=== PATIENT | female | born 1965 | race African-American/Black ===

== ENCOUNTER → 2016-09-27 | Outpatient (CLI) | payer OTHER ==
[~2016-09-27] MED LIST: ADVIN10/60 INH; DIVA500T59 PO; GABA-113 PO; RISP1TAB18 PO; TRAZ100T29 PO; VNTHFA/IN INH; ZIPR60CA PO
[2016-09-30 01:55] LABS: CHLAMYDIA TRACH RNA*** NOT DETECTED (NOT DETECTED); GC (NEIS GONORRHOEAE)RNA** NOT DETECTED (NOT DETECTED)
== END | disposition home or self-care (01) ==
LOC: C.LAB1850 13:42
PROVIDERS: ATTEND Obstetrics & Gynecology
DX: Z11.3 Encounter for screening for infections with a predominantly sexual mode of transmission (principal)

== ENCOUNTER → 2017-04-12 | Outpatient (CLI) | payer OTHER ==
[2017-04-12 15:34] LABS: BASO % 0.4 %; BASO ABS # 0.04 K/uL (0-0.2); COMPLETE YES; EOS % 1.4 %; HEMATOCRIT 41.8 % (37-47); IG% 0.2 %; LYMPH % 41.7 %; LYMPH ABS # 4.06 K/uL (1.2-3.4); MEAN CELL VOLUME 88.9 fL (80-100); MEAN CORPUSCULAR HEMOGLOBIN 28.9 pg (25-34); MEAN CORPUSCULAR HGB CONC 32.5 g/dl (32-36); MEAN PLATELET VOLUME 10.1 fL (7.4-10.4); MONO % 4.7 %; NEUT % 51.6 %; PLATELET COUNT 312 K/uL (130-400); WHITE BLOOD COUNT 9.73 K/uL (4.8-10.8)
[2017-04-12 16:55] LABS: BENZODIAZEPINE, URINE NEG (NEG); COCAINE,URINE NEG (NEG); PHENCYCLIDINE, URINE NEG (NEG)
== END | disposition home or self-care (01) ==
LOC: C.LAB 14:43
PROVIDERS: ATTEND Psychiatry & Neurology Psychiatry
DX: F31.9 Bipolar disorder, unspecified (principal)

== ENCOUNTER → 2017-04-16 | Outpatient (CLI) | payer OTHER ==
--- NOTE | 2017-04-16 16:13 | MAMMOGRAPHY REPORT ---
BILATERAL DIGITAL SCREENING MAMMOGRAM TOMOSYNTHESIS WITH CAD: 04/16/2017 CLINICAL HISTORY: Routine screening. TECHNIQUE: Breast tomosynthesis in addition to standard 2D mammography was performed. Current study was also evaluated with a Computer Aided Detection (CAD) system. COMPARISON: Comparison is made to exams dated: 04/01/2015 mammogram, 01/29/2013 mammogram, 01/29/2012 mamm ogram - [facility], 07/20/2008, and 07/18/2007. BREAST COMPOSITION: There are scattered areas of fibroglandular density in both breasts. FINDINGS: No suspicious masses, calcifications, or areas of architectural distortion are noted in ei ther breast. There has been no significant interval change compared to prior exams. IMPRESSION: ACR BI-RADS CATEGORY 1: NEGATIVE There is no mammographic evidence of malignancy. A 1 year screening mammogram is recommended. The pa tient will receive written notification of the results. Approximately 10% of breast cancers are not detected with mammography. A negative mammographic report should not delay biopsy if a clinically suggestive mass is present. Annette Allison M.D. ah/:04/16/2017 15:02:04 Infection Prevention Practitioner: Martin ARGUELLES(R)(M), [facility] letter sent: Normal 1/2 BI-RADS Code: ACR BI-RADS Category 1: Negative
== END | disposition home or self-care (01) ==
LOC: C.MAMM 12:11
PROVIDERS: ATTEND Obstetrics & Gynecology
DX: Z12.31 Encounter for screening mammogram for malignant neoplasm of breast (principal)

== ENCOUNTER 2017-06-04 10:41 | Emergency (ER) | payer OTHER ==
[~2017-06-04] VITALS: Ht 162.6 cm; Wt 76.9 kg
[~2017-06-04 10:41] MED LIST changes: -ADVIN10/60 INH; -DIVA500T59 PO
[2017-06-04 10:46] VITALS: TEMP 36.9; Ht 162.6 cm; Wt 76.9 kg
[2017-06-04] MEDS ORDERED: ACETAMINOPHEN 500 MG TAB PO STA (10:58)
[2017-06-04] MEDS ORDERED: SODIUM CHLORIDE 0.9% 1000ML 1,000 ML IV STA (10:58)
--- NOTE | 2017-06-04 11:20 | EMERGENCY ROOM VISIT NOTE ---
History Report prepared by Rosales: Lg Montilla Under the Supervision of: Dr. Jatinder Cobos M.D. First contact with patient: 10:55 Chief Complaint: BACK PAIN Stated Complaint: PAIN IN LEFT SIDE History of Present Illness The patient is a 51 year old female who presents to the Emergency Room with complaints of constant left upper back pain starting last night. The patient states that this pain is different than her normal back pain. She states that the pain is worsened with breathing and moving. The patient states that she was wheezing this morning, so she took 2 puffs from her albuterol inhaler. The patient denies any fever, chills, cough, congestion, shortness of breath, nausea , vomiting, and sweating. She additionally states that she is scheduled to have back surgery in a few weeks. She states that she watched a lot of television last night while laying down. Source of History: patient Onset: last night Position: back (upper) Timing: constant Modifying Factors (Worsening): breathing, movement Associated Symptoms: No fevers, No chills, No diaphoresis, No SOB, No nausea , No vomiting Review of Systems See HPI for pertinent positives and negatives. A total of ten systems were reviewed and were otherwise negative. Past Medical & Surgical Medical Problems: (1) Chronic back pain (2) Lung disease Social History Smoking Status: Current Every Day Smoker Alcohol Use: none Marital Status: single Occupation Status: unemployed Current/Historical Medications Scheduled Gabapentin (Neurontin), 300 MG PO TID Risperidone (Risperdal), 1 MG PO HS Trazodone Hcl (Trazodone), 100 MG PO QHS Ziprasidone Hcl (Geodon), 60 MG PO BID Scheduled PRN Albuterol Hfa (Ventolin Hfa), 2-4 PUFFS INH Q6H PRN for SOB/Wheezing Allergies Coded Allergies: Ibuprofen (Verified Allergy, Mild, RASH, 06/04/17) Shellfish (Verified Allergy, Mild, HIVES, 06/04/17) Physical Exam Vital Signs Date Time Temp Pulse Resp B/P (MAP) Pulse Ox O2 Delivery O2 Flow Rate FiO2 06/04/17 12:49 61 123/79 100 06/04/17 12:27 63 06/04/17 11:29 100 Room Air 06/04/17 10:46 36.9 71 18 151/100 99 Room Air Physical Exam GENERAL: Awake, alert, well-appearing, in no distress HENT: Dry mucous membranes. Normocephalic, atraumatic. Oropharynx unremarkable. EYES: Normal conjunctiva. Sclera non-icteric. NECK: Supple. No nuchal rigidity. FROM. No JVD. RESPIRATORY: Clear to auscultation. CARDIAC: Regular rate, normal rhythm. Extremities warm and well perfused. Pulses equal. ABDOMEN: Soft, non-distended. No tenderness to palpation. No rebound or guarding. No masses. RECTAL: Deferred. MUSCULOSKELETAL: Tenderness in the left trapezius and subscapular region with palpable muscle spasm. Chest examination reveals no tenderness. The back is symmetrical on inspection without obvious abnormality. There is no CVA tenderness to palpation. No joint edema. LOWER EXTREMITIES: Calves are equal size bilaterally and non-tender. No edema. No discoloration. NEURO: Normal sensorium. No sensory or motor deficits noted. SKIN: No rash or jaundice noted. Medical Decision & Procedures ER Provider Diagnostic Interpretation: Radiology results as stated below per my review and radiologist interpretation: CHEST ONE VIEW PORTABLE CLINICAL HISTORY: Atypical chest pain COMPARISON STUDY: 09/29/2010 FINDINGS: The cardiac and mediastinal contours are normal. There is no evidence of focal pulmonary consolidation. There is no evidence of failure. No pleural effusions are visualized. IMPRESSION: No active disease in the chest. Electronically signed by: Santi Doshi M.D. 06/04/2017 11:26 AM Dictated Date/Time: 06/04/2017 11:25 AM Laboratory Results 06/04/17 11:11 Red Blood Count 4.65, Mean Corpuscular Volume 88.8, Mean Corpuscular Hemoglobin 28.0, Mean Corpuscular Hemoglobin Concent 31.5, Mean Platelet Volume 9.9, Neutrophils (%) (Auto) 48.5, Lymphocytes (%) (Auto) 44.0, Monocytes (%) (Auto) 5.1, Eosinophils (%) (Auto) 1.9, Basophils (%) (Auto) 0.4, Neutrophils # (Auto) 3.82, Lymphocytes # (Auto) 3.47, Monocytes # (Auto) 0.40, Eosinophils # (Auto) 0.15, Basophils # (Auto) 0.03 06/04/17 11:11 Test 06/04/17 11:11 White Blood Count 7.88 K/uL (4.8-10.8) Red Blood Count 4.65 M/uL (4.2-5.4) Hemoglobin 13.0 g/dL (12.0-16.0) Hematocrit 41.3 % (37-47) Mean Corpuscular Volume 88.8 fL (80-100) Mean Corpuscular Hemoglobin 28.0 pg (25-34) Mean Corpuscular Hemoglobin Concent 31.5 g/dl (32-36) Platelet Count 295 K/uL (130-400) Mean Platelet Volume 9.9 fL (7.4-10.4) Neutrophils (%) (Auto) 48.5 % Lymphocytes (%) (Auto) 44.0 % Monocytes (%) (Auto) 5.1 % Eosinophils (%) (Auto) 1.9 % Basophils (%) (Auto) 0.4 % Neutrophils # (Auto) 3.82 K/uL (1.4-6.5) Lymphocytes # (Auto) 3.47 K/uL (1.2-3.4) Monocytes # (Auto) 0.40 K/uL (0.11-0.59) Eosinophils # (Auto) 0.15 K/uL (0-0.5) Basophils # (Auto) 0.03 K/uL (0-0.2) RDW Standard Deviation 47.0 fL (36.4-46.3) RDW Coefficient of Variation 14.5 % (11.5-14.5) Immature Granulocyte % (Auto) 0.1 % Immature Granulocyte # (Auto) 0.01 K/uL (0.00-0.02) Anion Gap 5.0 mmol/L (3-11) Est Creatinine Clear Calc Drug Dose 70.3 ml/min Estimated GFR () 80.8 Estimated GFR (Non- 69.8 BUN/Creatinine Ratio 25.2 (10-20) Calcium Level 8.7 mg/dl (8.5-10.1) Troponin I < 0.015 ng/ml (0-0.045) Chemistry Specimen Hemolysis Laboratory results reviewed by me Medications Administered Medications (Trade) Dose Ordered Sig/Lady Route Start Time Stop Time Status Last Admin Dose Admin Sodium Chloride 1,000 ml @ 999 mls/hr Q1H1M STAT IV 06/04/17 10:58 06/04/17 11:58 DC 06/04/17 11:28 999 MLS/HR Acetaminophen (Tylenol Tab) 1,000 mg NOW STAT PO 06/04/17 10:58 06/04/17 11:05 DC 06/04/17 11:26 1,000 MG ECG Indication: back/shoulder pain Rate (beats per minute): 68 Rhythm: normal sinus Findings: no acute ischemic change, other (normal axis) ED Course 1055: The patient was evaluated in room A3. A complete history and physical exam was performed. 1058: Tylenol Tab 1000mg PO, Sodium Chloride 1000 ml @ 999 mls/hr IV 1226: I reevaluated the patient, and she feels the same, but I informed her that there was nothing emergent at this time. I advised using a heating pad and follow up with her doctor. Medical Decision I reviewed the patient's past medical history, medications, and the nursing notes as described above. Differential diagnoses include: Musculoskeletal strain, cervical radiculopathy, pneumonia, bronchitis, COPD exacerbation, ACS, PE. The patient is a 51 y/o woman who presents to the ED with left upper back pain that started last night after prolonged time sitting on couch watching moves per HPI. On arrival the patient is in NAD, AFVSS. EKG unremarkable. Trop negative in the setting of > 6 hours of constant sx. Heart score 1, low risk. ACS not likely. Labs otherwise, unremarkable. On exam CTAB, +reproducible pain and palpable muscle spasm over left trapezius and subscapular area c/w muscle strain. Neck NTTP without step-offs. Findings and plan for follow-up d/w patient. Patient agreeable and d/c'd per discharge instructions. Medication Reconcilliation Current Medication List: was personally reviewed by me Blood Pressure Screening Patient's blood pressure: Elevated blood pressure Blood pressure disposition: Elevated BP felt to be situational Impression Primary Impression: Trapezius muscle strain Additional Impression: Trapezius muscle spasm Scribe Attestation The scribe's documentation has been prepared under my direction and personally reviewed by me in its entirety. I confirm that the note above accurately reflects all work, treatment, procedures, and medical decision making performed by me. Departure Information Dispostion Home / Self-Care Referrals No Doctor, Assigned (PCP) Forms HOME CARE DOCUMENTATION FORM, IMPORTANT VISIT INFORMATION Patient Instructions ED Muscle Aching, ED Spasm Muscle, My [facility] Additional Instructions Please follow up with your primary care physician in the next 1-3 days for reevaluation. Your symptoms are likely due to a muscle strain/spasm. Otherwise, your exam, EKG, chest x-ray and lab results did not show signs of an emergent condition at this time. Acetaminophen for pain as needed. Apply heating pad at 20 minute intervals throughout the day for additional pain relief and muscle relaxation Return to the emergency department for worsening symptoms as described in the accompanying instructions. Problem Qualifiers
--- NOTE | 2017-06-04 11:27 | DIAGNOSTIC IMAGING REPORT ---
CHEST ONE VIEW PORTABLE CLINICAL HISTORY: Atypical chest pain COMPARISON STUDY: 09/29/2010 FINDINGS: The cardiac and mediastinal contours are normal. There is no evidence of focal pulmonary consolidation. There is no evidence of failure. No pleural effusions are visualized.[ IMPRESSION: No active disease in the chest. Electronically signed by: Santi Doshi M.D. 06/04/2017 11:26 AM Dictated Date/Time: 06/04/2017 11:25 AM
[2017-06-04 11:29] VITALS: O2SAT 100
[2017-06-04 11:30] LABS: RED BLOOD COUNT 4.65 M/uL (4.2-5.4); WHITE BLOOD COUNT 7.88 K/uL (4.8-10.8)
[2017-06-04 11:31] LABS: BASO % 0.4 %; BASO ABS # 0.03 K/uL (0-0.2); COMPLETE YES; EOS % 1.9 %; HEMATOCRIT 41.3 % (37-47); IG% 0.1 %; LYMPH ABS # 3.47 K/uL (1.2-3.4); MEAN CELL VOLUME 88.8 fL (80-100); MEAN CORPUSCULAR HGB CONC 31.5 g/dl (32-36); MEAN PLATELET VOLUME 9.9 fL (7.4-10.4); MONO % 5.1 %; NEUT % 48.5 %; PLATELET COUNT 295 K/uL (130-400)
[2017-06-04 11:58] LABS: BLOOD UREA NITROGEN 24 mg/dl (7-18); BUN/CREATININE RATIO 25.2 (10-20); CALCIUM 8.7 mg/dl (8.5-10.1); CARBON DIOXIDE 24 mmol/L (21-32); CHLORIDE 110 mmol/L (98-107); CREATININE 0.94 mg/dl (0.60-1.20); GLUCOSE 84 mg/dl (70-99); POTASSIUM 4.4 mmol/L (3.5-5.1); SODIUM 139 mmol/L (136-145)
[2017-06-04 12:49] VITALS: BP 123/79; PULSE 61; O2SAT 100
== END 2017-06-04 12:50 | disposition home or self-care (01) ==
LOC: C.EDB 10:42 → C.EDA 12:50
DX: S46.812A Strain of other muscles, fascia and tendons at shoulder and upper arm level, left arm, initial encounter (principal); X58.XXXA Exposure to other specified factors, initial encounter; M62.838 Other muscle spasm; M54.6 Pain in thoracic spine; G89.29 Other chronic pain; J98.4 Other disorders of lung; F17.200 Nicotine dependence, unspecified, uncomplicated

== ENCOUNTER → 2017-12-10 | Outpatient (CLI) | payer OTHER | END | disposition home or self-care (01) | LOC: C.LABSPEC 15:57 | PROVIDERS: ATTEND Obstetrics & Gynecology | DX: N89.8 Other specified noninflammatory disorders of vagina (principal) ==

== ENCOUNTER 2018-02-15 07:20 | Emergency (ER) | payer OTHER ==
[~2018-02-15] VITALS: Ht 162.6 cm; Wt 65.0 kg
[2018-02-15 07:32] VITALS: TEMP 36.9; Ht 162.6 cm; Wt 65.0 kg
[2018-02-15] MEDS ORDERED: ACETAMINOPHEN 500 MG TAB PO STA (07:48)
--- NOTE | 2018-02-15 08:25 | DIAGNOSTIC IMAGING REPORT ---
L ANKLE MIN 3 VIEWS ROUTINE CLINICAL HISTORY: 52 years-old Female presenting with LEFT, EVAL FX. TECHNIQUE: Frontal, mortise, and lateral views of the left ankle were obtained. COMPARISON: 12/22/2007. FINDINGS: Anterior osteophytosis noted at the ankle mortise, which is congruent. This is new from prior. Smoothly sclerotic ossicle noted at the inferior pole of the medial malleolus likely due to prior avulsion injury. This is also new from prior. No acute fracture or malalignment. No radiographic soft tissue abnormality. IMPRESSION: 1. No acute osseous injury. 2. Evidence of old avulsion injury at the inferior pole the medial malleolus. New since 2007. 3. Degenerative changes of the ankle mortise. New since 2007. Electronically signed by: Christopher Narayanan M.D. 02/15/2018 8:24 AM Dictated Date/Time: 02/15/2018 8:07 AM
--- NOTE | 2018-02-15 08:30 | EMERGENCY ROOM VISIT NOTE ---
ED Visit Note First contact with patient: 07:35 CHIEF COMPLAINT: Left ankle injury last evening HISTORY OF PRESENT ILLNESS: Patient is a 52-year-old female who presents emergency department for evaluation of left ankle pain. She twisted the ankle last evening when she fell off of a Hoverboard. She reports that she applied ice and elevated the ankle. She states that her boyfriend brought her one crutch to use. This morning the ankle was more painful and she could not put weight on it. She rates her discomfort a 9/10. She denies any prior history of injuries to this ankle. REVIEW OF SYSTEMS: Review of systems as per HPI. All other systems reviewed were negative. At least 6 systems reviewed. PMH: Electronic medical records are reviewed and summarized as above/below. See Problem List. SOCIAL HISTORY: Patient lives at home. Smoker. PHYSICAL EXAM: Vital Signs: Reviewed Nurse's notes. MENTAL STATUS: Tearful 52- year-old female who is seated in a wheelchair in no acute distress. MUSCULOSKELETAL: The left ankle is slightly swollen and tender over the lateral aspect but the skin is intact and there is no ligamentous instability. No pain over the 5th metatarsal or fibular head. Lisfranc joint is negative. There is no deformity. The foot and toes are warm and well-perfused. Sensation to pain and light touch is intact. EMERGENCY DEPARTMENT COURSE: Ice pack was applied and patient was medicated with 1 g of Tylenol orally. X-ray reveals no acute fracture, arthritic and old posttraumatic findings were noted. A compression sleeve and gel splint were applied to the ankle under my direction and the position was satisfactory. Crutches were issued and patient was instructed on a non weight bearing gait. Conservative care measures were discussed. Patient was encouraged to follow-up with her primary care provider or with orthopedics if she does not feel that her symptoms are improving. Medication reconciliation: I attest that I have personally reviewed the patient' s current medication list. Blood pressure screening: Patient was found to have a slightly elevated blood pressure due to circumstances. I do not believe that the patient requires hypertension monitoring. Differential diagnosis include foot verses ankle sprain/fracture, contusion, dislocation. L ANKLE MIN 3 VIEWS ROUTINE CLINICAL HISTORY: 52 years-old Female presenting with LEFT, EVAL FX. TECHNIQUE: Frontal, mortise, and lateral views of the left ankle were obtained. COMPARISON: 12/22/2007. FINDINGS: Anterior osteophytosis noted at the ankle mortise, which is congruent. This is new from prior. Smoothly sclerotic ossicle noted at the inferior pole of the medial malleolus likely due to prior avulsion injury. This is also new from prior. No acute fracture or malalignment. No radiographic soft tissue abnormality. IMPRESSION: 1. No acute osseous injury. 2. Evidence of old avulsion injury at the inferior pole the medial malleolus. New since 2007. 3. Degenerative changes of the ankle mortise. New since 2007. Problem List Medical Problems: (1) Back pain with radiation Status: Resolved (2) Cervical radiculopathy Status: Resolved (3) Chronic back pain Status: Chronic (4) Lung disease Status: Chronic (5) Paresthesia of arm Status: Resolved (6) Trapezius muscle spasm Status: Resolved (7) Trapezius muscle strain Status: Resolved Current/Historical Medications Scheduled Risperidone (Risperdal), 1 MG PO HS Trazodone Hcl (Trazodone), 100 MG PO QHS Ziprasidone Hcl (Geodon), 60 MG PO BID Scheduled PRN Albuterol Hfa (Ventolin Hfa), 2-4 PUFFS INH Q6H PRN for SOB/Wheezing Gabapentin (Neurontin), 300 MG PO TID PRN for Pain Allergies Coded Allergies: Ibuprofen (Verified Allergy, Mild, RASH, 02/15/18) Shellfish (Verified Allergy, Mild, HIVES, 02/15/18) Vital Signs Date Time Temp Pulse Resp B/P (MAP) Pulse Ox O2 Delivery O2 Flow Rate FiO2 02/15/18 08:56 56 17 133/84 99 02/15/18 07:32 36.9 59 17 142/69 99 Room Air Medications Administered Medications (Trade) Dose Ordered Sig/Lady Route Start Time Stop Time Status Last Admin Dose Admin Acetaminophen (Tylenol Tab) 1,000 mg NOW STAT PO 02/15/18 07:48 02/15/18 07:50 DC 02/15/18 08:06 1,000 MG Departure Information Impression Primary Impression: Left ankle sprain Referrals No Doctor, Assigned (PCP) Patient Instructions [facility] [place] [facility] Additional Instructions Acetaminophen(Tylenol) may be used for fever or pain. Use 1000mg every six hours as needed. Avoid using more than 3000mg in a 24 hour period. This medication can be taken if you need to drive, work, or perform activities which may be dangerous when taking narcotic pain medication. Ice compresses for 20 minutes at a time four times daily for 2-3 days. Use the gel splint and crutches as instructed. Rest and elevate your injury. Continue current medications. Return to the ER immediately for any numbness, tingling, severe pain, extreme swelling in the extremity or as needed. Followup with your family doctor or orthopedic surgery if no improvement in 5-7 days.
[2018-02-15 08:56] VITALS: BP 133/84; PULSE 56; O2SAT 99
== END 2018-02-15 08:57 | disposition home or self-care (01) ==
LOC: C.EDB 07:21
DX: S93.402A Sprain of unspecified ligament of left ankle, initial encounter (principal); X50.9XXA Other and unspecified overexertion or strenuous movements or postures, initial encounter; J98.4 Other disorders of lung; Z88.8 Allergy status to other drugs, medicaments and biological substances; Z91.013 Allergy to seafood

== ENCOUNTER 2023-08-03 10:29 | Observation (INO) ==
[2023-08-03] MEDS ORDERED: SODIUM CHLORIDE 0.9% 500 ML IV STA (11:49)
[2023-08-03] MEDS ORDERED: ONDANSETRON INJ 2 MG/ML 2 ML VIAL IV STA (11:58)
[2023-08-03] MEDS ORDERED: MoRPHine SULFATE 4 MG/ML 1 ML CARP\\VIAL IV STA ×2 (11:58→12:59)
--- NOTE | 2023-08-03 11:59 | Emergency Department Note ---
Impression & Plan Chest pain ADMIT ED Provider Note HPI: History obtained from patient. The patient is a 57-year-old female with history of COPD, longstanding history of smoking, bipolar disorder, GERD, who presents emergency department with a chief complaint of right-sided chest discomfort that has been constant for the past 2 days. Patient states at times she does get some shortness of breath as well. Patient states at times the pain is severe, she locates the pain in the right upper chest area and right axillary area. On arrival here to the ED the patient is hypertensive but otherwise hemodynamically stable, she is in no acute distress on my initial assessment. ROS: - Per HPI Differential Diagnosis: Acute coronary syndrome, pulmonary embolism, pneumothorax, aortic dissection, pneumonia, pleuritis, musculoskeletal chest, amongst other potential pathologies. *Outpatient medications and allergy history reviewed. *Pertinent external medical records reviewed PE: General: Alert HEENT: Normocephalic, trachea midline Eyes: Extraocular eye movement is intact, no scleral erythema Pulmonary: Clear to auscultation bilaterally, no wheezing Cardio: Regular rate and rhythm GI: Abdomen is soft to palpation : No suprapubic tenderness MSK: No evidence of trauma or malformation of the extremities, no edema Skin: No evidence of rash Neuro: Alert, no focal deficits Psychiatric: Cooperative INDEPENDENT INTERPRETATIONS: nuclear monitoring technician: (As interpreted by myself): - An order was placed for continuous cardiac monitoring - Patient was noted to be in sinus rhythm with a rate of 60 EKG: (As interpreted by myself): Rate: 61 Rhythm: Normal sinus rhythm Intervals: QRS prolonged at 132 ms, otherwise within normal limits ST changes: No ST elevation Time: 1115 Interventions provided in ED: -IV morphine, IV Zofran Medical Decision Making: Shortly after the patient arrived IV was established lab work obtained, patient was given IV morphine and IV Zofran for symptoms. Lab work shows a mild leukopenia at 4.6, hemoglobin is normal, platelet count is normal, D-dimer was obtained and is within normal limits. CMP does not show any evidence of any critical findings. Troponin is negative x1. Lipase is normal. EKG per my interpretation shows normal sinus rhythm, there is evidence of left bundle branch block which appears new in comparison to the previous EKG available in our system from 2017. Chest x-ray does not show any evidence of any acute process. On my reassessment following the above interventions patient states she is still having some right-sided chest discomfort. Given new left bundle branch block on EKG with chest pain for the past several days, risk factors including age, hypertension, and history of tobacco use, I do feel the patient is appropriate for admission. Patient was in agreement to this plan. She was given additional dose of IV morphine for pain. Case was discussed with the on-call hospitalist, Dr. Yuen, and the patient was placed for admission in stable condition. Consultants/Discussions held with other healthcare providers: -Hospitalist, Dr. Yuen Disposition discussion held by myself with: -Patient Diagnosis: 1. Chest pain, acute 2. Left bundle branch block on EKG / Abnormal EKG 3. Hypertension, established 4. Tobacco use, chronic Disposition: Admission Dimas Nunez DO Emergency Medicine Past Med/Surg History Medical History Anemia Anxiety Asthma Barretts esophagus Bipolar 2 disorder COPD (chronic obstructive pulmonary disease) Depression GERD (gastroesophageal reflux disease) History of drug abuse History of suicide attempt 2010 Left knee pain Lumbago Lumbar spinal stenosis Severe at L5-S1-GETS BACK INJECTIONS Migraine Panic disorder SOB (shortness of breath) Tobacco use Surgical History History of bilateral tubal ligation History of bunionectomy RIGHT History of colonoscopy History of esophagogastroduodenoscopy (EGD) Family History Mother Breast cancer Hypertension Father Lung cancer Other Diabetes Heart disease Denies family history of Colorectal cancer Social History Smoking Status: Current every day smoker Cigarettes Per Day: 20 PER DAY SINCE AGE 13; Second Hand Exposure: Yes (FAMILY); Do You Dip or Chew Tobacco: No; Hx Alcohol Use: Yes Alcohol type: beer Hx Substance Use: Yes Substance Use Type Other:: SMOKES MARIJUANA DAILY-3 X Preferred Language: Icelandic Communication Ability: Effective Purchasing Administrator Required: No Beliefs That Will Affect Care: None Current Living Situation: Alone Feels Safe at Home: Yes Assistive Devices: Cane, Denture - Upper, Denture - Lower and Glasses Allergies Allergies Allergy/AdvReac Type Severity Reaction Status Date / Time ibuprofen Allergy Mild RASH Verified 07/12/23 10:00 shellfish derived Allergy Mild HIVES with Verified 07/12/23 10:00 crab hydrocodone Allergy Unknown itchy Uncoded 07/12/23 10:00 Home Meds Home Medications Medication Instructions Recorded Confirmed hydralazine 25 mg tablet 25 mg PO BID #30 tabs 06/03/19 08/03/23 trazodone 300 mg tablet 50 - 100 mg PO HS 06/03/19 08/03/23 risperidone 1 mg tablet 0.5 mg PO QAM 07/30/19 08/03/23 Medical marijuana #1 ea 02/28/21 07/12/23 hydroxyzine HCl 50 mg tablet 50 mg PO DAILY 08/03/23 08/03/23 Previous Rx's Medication Instructions Recorded albuterol sulfate 90 mcg/actuation 1 puff inhalation Q6H PRN 08/10/21 aerosol inhaler shortness of breath or wheezing #18 grams valacyclovir 500 mg tablet 500 mg PO BID #6 tabs 03/15/23 Results & Data (ED) Vital Signs Vital Signs - 24 hr 08/03/23 11:07 08/03/23 11:37 08/03/23 11:53 Temperature 36.8 C Temperature Source Temporal Artery Scan Pulse Rate 70 63 Pulse Rate [Apical] Respiratory Rate 18 Blood Pressure 169/111 H Blood Pressure [Left Arm] Blood Pressure Mean 130 Blood Pressure Mean [Left Arm] Pulse Oximetry 99 97 Oxygen Delivery Method Room Air Room Air Sepsis Recent Fever Within 48 Hours No Sepsis New/Unexplained Change in Mental Status No Sepsis Action Taken by Nursing No Action Required 08/03/23 12:30 08/03/23 14:00 Temperature Temperature Source Pulse Rate Pulse Rate [Apical] 54 L 58 L Respiratory Rate 18 18 Blood Pressure Blood Pressure [Left Arm] 125/73 Blood Pressure Mean Blood Pressure Mean [Left Arm] 90 Pulse Oximetry 97 Oxygen Delivery Method Room Air Sepsis Recent Fever Within 48 Hours Sepsis New/Unexplained Change in Mental Status Sepsis Action Taken by Nursing Laboratory Data 08/03/23 11:20 08/03/23 11:20 Lab Results 08/03/23 08/03/23 Range/Units 11:20 13:23 WBC 4.61 L (4.8-10.8) K/ul RBC 4.66 (4.20-5.40) M/uL Hgb 13.4 (12.0-16.0) g/dl Hct 40.8 (37.0-47.0) % MCV 87.6 (80.0-100.0) fL MCH 28.8 (25.0-34.0) pg MCHC 32.8 (32.0-36.0) g/dL RDW Std Deviation 47.0 H (36.4-46.3) fL RDW Coeff of [place] 14.7 H (11.5-14.5) % Plt Count 273 (130-400) K/uL MPV 10.2 (9.4-12.4) fL Immature Gran % (Auto) 0.2 % Neut % (Auto) 49.2 % Lymph % (Auto) 41.0 % Alcorn % (Auto) 7.6 % Eos % (Auto) 1.3 % Baso % (Auto) 0.7 % Neut # (Auto) 2.27 (1.40-6.50) K/uL Lymph # (Auto) 1.89 (1.20-3.40) K/uL Alcorn # (Auto) 0.35 (0.11-0.59) K/uL Eos # (Auto) 0.06 (0.00-0.50) K/uL Baso # (Auto) 0.03 (0.00-0.20) K/uL Immature Gran # (Auto) 0.01 (0.01-0.20) K/uL PT 11.2 (9.0-12.0) Seconds INR 1.0 (0.9-1.1) D-Dimer 300 (0-500) ug/L FEU Sodium 140 (136-145) mmol/L Potassium 4.2 (3.5-5.1) mmol/L Chloride 106 (98-107) mmol/L Carbon Dioxide 29 (21-32) mmol/L Anion Gap 5 (3-11) BUN 19 (6-23) mg/dl Creatinine 0.93 (0.6-1.2) mg/dl Est Cr Clr Drug Dosing 56.9 ml/min Est GFR ( Amer) 78.5 ml/min Est GFR (Non-Af Amer) 67.7 ml/min BUN/Creatinine Ratio 20.4 H (10-20) Glucose 81 (70-99(Fasting)) mg/dl Calcium 9.4 (8.6-10.3) mg/dl Total Bilirubin 0.6 (0.2-1.0) mg/dl AST 25 (13-39) U/L ALT 34 (7-52) U/L Alkaline Phosphatase 57 (34-104) U/L Troponin I High Sens 6.1 5.5 (0-14) pg/ml Total Protein 7.1 (6.0-8.3) gm/dl Albumin 4.2 (3.4-5.0) gm/dl Globulin 2.9 (2.5-4.0) gm/dl Albumin/Globulin Ratio 1.4 (0.9-2) Lipase 20 (11-82) U/L Administered Medications Discontinued Medications Sodium Chloride (Nss) 500 mls @ 999 mls/hr IV .Q31M STA Stop: 08/03/23 12:19 Last Infusion: 08/03/23 12:40 Dose: Infused Documented By: Admin: 08/03/23 12:09 Dose: 999 mls/hr Documented By: OL Morphine Sulfate (Morphine Sulfate 4 Mg/Ml 1 Ml Carp\Vial) 4 mg IV NOW STA Stop: 08/03/23 11:59 Last Admin: 08/03/23 12:09 Dose: 4 mg Documented By: OL Morphine Sulfate (Morphine Sulfate 4 Mg/Ml 1 Ml Carp\Vial) 4 mg IV NOW STA Stop: 08/03/23 13:00 Last Admin: 08/03/23 13:07 Dose: 4 mg Documented By: OL Ondansetron HCl (Ondansetron Inj 2 Mg/Ml 2 Ml Vial) 4 mg IV NOW STA Stop: 08/03/23 11:59 Last Admin: 08/03/23 12:09 Dose: 4 mg Documented By: OL Imaging Data Radiologist's Impression: Chest X-Ray 08/03/23 11:49 XR chest 1V portable HISTORY: 57 years-old Female Chest pain, nonspecific COMPARISON: 06/04/2017 TECHNIQUE: AP view of the chest FINDINGS: Cardiomediastinal and hilar silhouettes appear normal. Atherosclerosis of the aorta. No pneumothorax, pleural effusion or airspace consolidation. Bones appear grossly intact. IMPRESSION: No acute process. ACT 112: Negative or not required by law. The above report was generated using voice recognition software. It may contain grammatical, syntax or spelling errors. Electronically signed by: Rikki Garcia M.D. 08/03/2023 12:10 PM Discharge Plan Visit Data Chief Complaint: Cardiac Assessment Stated Complaint: right flank pain ED Provider: Dimas Nunez Discharge Problem: Chest pain Forms Stand Alone Forms: [facility] Prescriptions Prescriptions: No Action (DME) Medical marijuana aerosol 0 .Route .MEDSUPPLY Qty: 1 albuterol sulfate 90 mcg/actuation HFA aerosol inhaler 1 puff inhalation Q6H PRN (Reason: shortness of breath or wheezing) Qty: 18 1RF valacyclovir 500 mg tablet 500 mg PO BID Qty: 6 5RF trazodone 300 mg tablet 50 - 100 mg PO HS Rx Instructions: usually takes half tab hydralazine 25 mg tablet 25 mg PO BID Qty: 30 risperidone 1 mg tablet 0.5 mg PO QAM hydroxyzine HCl 50 mg tablet 50 mg PO DAILY Referrals Referrals: PCP,NO [Primary Care Provider] - Discharge Problem: Chest pain Qualifiers: Chest pain type: unspecified Qualified Code(s): R07.9 - Chest pain, unspecified
[2023-08-03 12:11] LABS: Basophils # (auto) 0.03 K/uL (0.00-0.20); Basophils % (auto) 0.7 %; Eosinophils # (auto) 0.06 K/uL (0.00-0.50); Eosinophils % (auto) 1.3 %; Hematocrit (blood only) 40.8 % (37.0-47.0); Hemoglobin 13.4 g/dl (12.0-16.0); Immature Granulocytes # (auto) 0.01 K/uL (0.01-0.20); Immature Granulocytes % (auto) 0.2 %; Lymphocytes # (auto) 1.89 K/uL (1.20-3.40); Mean Corpuscular Hemoglobin 28.8 pg (25.0-34.0); Mean Corpuscular Hgb Conc 32.8 g/dL (32.0-36.0); Mean Corpuscular Volume 87.6 fL (80.0-100.0); Mean Platelet Volume 10.2 fL (9.4-12.4); Monocytes # (auto) 0.35 K/uL (0.11-0.59); Monocytes % (auto) 7.6 %; Neutrophils # (auto) 2.27 K/uL (1.40-6.50); Neutrophils % (auto) 49.2 %; Platelet Count 273 K/uL (130-400); RDW Coefficient of Variation 14.7 % (11.5-14.5); Red Blood Count 4.66 M/uL (4.20-5.40); White Blood Count 4.61 K/ul (4.8-10.8)
--- NOTE | 2023-08-03 12:11 | XRay Report ---
XR chest 1V portable HISTORY: 57 years-old Female Chest pain, nonspecific COMPARISON: 06/04/2017 TECHNIQUE: AP view of the chest FINDINGS: Cardiomediastinal and hilar silhouettes appear normal. Atherosclerosis of the aorta. No pneumothorax, pleural effusion or airspace consolidation. Bones appear grossly intact. IMPRESSION: No acute process. ACT 112: Negative or not required by law. The above report was generated using voice recognition software. It may contain grammatical, syntax o r spelling errors. Electronically signed by: Rikki Garcia M.D. 08/03/2023 12:10 PM
[2023-08-03 12:24] LABS: Albumin Globulin Ratio 1.4 (0.9-2); Albumin Level 4.2 gm/dl (3.4-5.0); BUN Creatinine Ratio 20.4 (10-20); Bilirubin,Total 0.6 mg/dl (0.2-1.0); Calcium 9.4 mg/dl (8.6-10.3); Creatinine Clr Calc Pharmacy 56.9 ml/min; Est GFR (African American) 78.5 ml/min; Est GFR (Non-African American) 67.7 ml/min; Globulin 2.9 gm/dl (2.5-4.0); Potassium 4.2 mmol/L (3.5-5.1); Total Protein 7.1 gm/dl (6.0-8.3)
[2023-08-03 12:30] LABS: Troponin I High Sensitivity 6.1 pg/ml (0-14)
[2023-08-03 12:32] LABS: D Dimer 300 ug/L FEU (0-500); Prothrombin Time 11.2 Seconds (9.0-12.0)
--- NOTE | 2023-08-03 13:13 | Electrocardiogram Report ---
Test Reason : Blood Pressure : / mmHG Vent. Rate : 061 BPM Atrial Rate : 061 BPM P-R Int : 160 ms QRS Dur : 132 ms QT Int : 452 ms P-R-T Axes : 065 052 038 degrees QTc Int : 455 ms Normal sinus rhythm Possible Left atrial enlargement Left bundle branch block Abnormal ECG When compared with ECG of 04-JUN-2017 11:11, Left bundle branch block is now Present Confirmed by Da Benton ([id number]) on 08/03/2023 1:13:08 PM Referred By: Confirmed By:Da Benton
--- NOTE | 2023-08-03 14:35 | History & Physical Report ---
Date of Service August 03, 2023 Assessment & Plan (1) Chest pain: Plan: 3 days of constant right-sided chest pain, worsened with movement not improved with rest. High-sensitivity troponin is normal x2. EKG is with left bundle branch block new from last EKG 5 years ago, no recent EKG for comparison Strongly suspect noncardiac as patient has had more than 72 hours of pain with normal troponin and is symptoms are exacerbated with movement but not sustained exertion, more suspicious for noncardiac versus MSK Echo obtained at bedside, septal abnormality is noted which is consistent with bundle branch block otherwise no wall motion abnormalities are noted. Reviewed with cardiology, given presentation suspect that this is noncardiac pain however due to new bundle branch block with wall motion abnormalities patient should have an outpatient nuclear stress test. This can be performed as an outpatient and inpatient consultation and heparinization is not required. Reasonable to add aspirin 81 mg daily We will treat for potential GERD as below We will add multimodal pain control and lidocaine patch to treat for MSK etiology (2) GERD (gastroesophageal reflux disease): Plan: History of GERD not on PPI Hemoglobin stable, no signs of upper GI bleeding and BUN is normal DDx atypical pain includes GI, she has not had any marti colored stools or pain with meals suggestive of biliary pathology and transaminases are normal PPI twice daily plus H2 therapy (3) COPD (chronic obstructive pulmonary disease): (4) Bipolar 2 disorder: Plan: Well-controlled, no recent SI per patient. Continue risperidone (5) Asthma: Plan: With intermittent wheezing but no hypoxia No signs of superimposed pneumonia Wheezing has resolved on reexamination, will defer ongoing steroids Plan DVT prophylaxis: Lovenox Disposition: Medical telemetry for chest pain CODE STATUS: Full code Diet: Heart healthy History of Present Illness Primary Care Provider: NO PCP Danica is a 57-year-old F with past medical history of panic disorder, bipolar 2 disorder with suicidality, tobacco use, GERD, COPD, asthma who presents with right-sided chest pain and a new left bundle branch block. Her initial troponin in the ER 6.1, repeat troponin is 5.5.. Danica reports she has had 3 days of sudden onset sharp and achy pain in her right breast. Pain started 3 days ago and has been constant since then and has had no pain-free periods since that time. She does not feel like rest improves her pain. She has noted exertion and sudden movement causes the pain to be worse, pain is not worsened on palpation. She has a history of asthma and intermittent wheezing which she does feel has been worse lately, however she also has shortness of breath which she feels is of a different and more persistent quality than with prior asthma exacerbations. She tried using her albuterol twice with no improvement. No DM. No HTN. No prior cardiac history. No history of bleeding, is not on antiplatelets or blood thinner Endorses history of ND, mother and brother both passed of ND. Mom was 'older' and brother was 66 Mother with breast cancer Risperidone for seprresion 'aactually doing pretty good.' no si/hi. Follows with [facility]. 0.5ppd tobacco since age 11 Medical History: Reviewed Medications: Reviewed Surgical History: Reviewed Family history: Reviewed Allergies: Reviewed Social History: Endorses tobacco use, rare social alcohol Code Status: Full Allergies Allergy/AdvReac Type Severity Reaction Status Date / Time ibuprofen Allergy Mild RASH Verified 07/12/23 10:00 shellfish derived Allergy Mild HIVES with Verified 07/12/23 10:00 crab hydrocodone Allergy Unknown itchy Uncoded 07/12/23 10:00 Home Medications Medication Instructions Recorded Confirmed Type hydralazine 25 mg tablet 25 mg PO BID #30 tabs 06/03/19 08/03/23 History trazodone 300 mg tablet 50 - 100 mg PO HS 06/03/19 08/03/23 History risperidone 1 mg tablet 0.5 mg PO QAM 07/30/19 08/03/23 History Medical marijuana #1 ea 02/28/21 07/12/23 History albuterol sulfate 90 mcg/actuation 1 puff inhalation Q6H PRN 08/10/21 08/03/23 Rx aerosol inhaler shortness of breath or wheezing #18 grams valacyclovir 500 mg tablet 500 mg PO BID #6 tabs 03/15/23 08/03/23 Rx hydroxyzine HCl 50 mg tablet 50 mg PO DAILY 08/03/23 08/03/23 History Past Med/Surg History Medical History Anemia Anxiety Asthma Barretts esophagus Bipolar 2 disorder COPD (chronic obstructive pulmonary disease) Depression GERD (gastroesophageal reflux disease) History of drug abuse History of suicide attempt 2010 Left knee pain Lumbago Lumbar spinal stenosis Severe at L5-S1-GETS BACK INJECTIONS Migraine Panic disorder SOB (shortness of breath) Tobacco use Surgical History History of bilateral tubal ligation History of bunionectomy RIGHT History of colonoscopy History of esophagogastroduodenoscopy (EGD) Family History Mother Breast cancer Hypertension Father Lung cancer Other Diabetes Heart disease Denies family history of Colorectal cancer Social History Smoking Status: Current every day smoker Tobacco Type: Cigarettes Cigarettes Per Day: 1/2 pack a day; Second Hand Exposure: Yes (FAMILY); Do You Dip or Chew Tobacco: No; Hx Alcohol Use: Yes Alcohol type: beer and hard liquor Hx Substance Use: Yes Last Used Substance: Days (ago) Last Used Substance Other:: 5 days ago last used Substance Use Type Other:: SMOKES MARIJUANA DAILY-3 X Preferred Language: Mongolian Communication Ability: Effective Art History Professor Required: No Beliefs That Will Affect Care: None Current Living Situation: Alone Other Information That Helps Us Care for You: No Feels Safe at Home: Yes Safety Concerns: Feels Safe At This Time Assistive Devices: None Physical Exam Physical Exam: General: A&Ox3. NAD. Cooperative. HEENT: Atraumatic, normocephalic. PERLAA. EoM intact. Vision.hearing intact Pulm: CTAB A&P. trace expiratory wheeze, -rales, -rhonchi. Symmetrical chest rise. No increased work of breathing. No respiratory distress. Cardiac: RRR, -mrg. Radial pulses intact and symmetrical. Abdominal: Nontender, nondistended, soft. BS present. Extremities: Warm, dry Results & Data Results & Data Vital Signs (Past 12 Hours) Vital Signs Temp Pulse Pulse Resp BP BP Pulse Ox 08/03/23 14:00 58 L 18 97 08/03/23 12:30 54 L 18 125/73 08/03/23 11:53 97 08/03/23 11:37 63 08/03/23 11:07 36.8 C 70 18 169/111 H 99 O2 Del Method 08/03/23 14:00 Room Air 08/03/23 12:30 08/03/23 11:53 Room Air 08/03/23 11:37 08/03/23 11:07 Room Air PG Care Time/CCT Total # of Minutes Spent Total Time Spent with Patient: Total time spent is greater than 50% in coordination of care (as documented) at patient's floor/unit and/or counseling patient: Coding Level of Care Code 66328 INT INP/OBS CARE 3/75MIN Diagnoses Chest pain R07.9 Chest pain type: unspecified GERD (gastroesophageal reflux disease) K21.9 COPD (chronic obstructive pulmonary disease) J44.9 Bipolar 2 disorder F31.81 Asthma J45.909 (1) Chest pain Chest pain type: unspecified Qualified Code(s): R07.9 - Chest pain, unspecified
[2023-08-03] MEDS ORDERED: ASPIRIN 81 MG CHEW PO STA (14:43)
--- NOTE | 2023-08-03 15:22 | XCELERA ---
[id number]
[2023-08-03] MEDS ORDERED: FAMOTIDINE 20 MG in SYRINGE 3 ML IV PRN (15:35)
[2023-08-03] MEDS ORDERED: ACETAMINOPHEN 500 MG TAB PO PRN (15:35)
[2023-08-03] MEDS ORDERED: LIDOCAINE 5% 1 PATCH TD STA (15:40)
[2023-08-03] MEDS: PANTOprazole 40 MG in SYRINGE 0 ML IV SCH (16:21)
[2023-08-03] MEDS ORDERED: INFLUENZA VIRUS QUADRIVALENT VACCINE (IIV4) 0.5 ML SYR IM ONE (17:17)
[2023-08-03] MEDS ORDERED: ALBUTEROL HFA 8 GM INHALER INH PRN (17:18)
[2023-08-03] MEDS: hydrALAZINE HCL 25 MG TAB PO SCH (20:19)
[2023-08-03] MEDS ORDERED: traZODone HCL 50 MG TAB PO SCH (21:00)
[2023-08-04] MEDS: hydrALAZINE HCL 25 MG TAB PO SCH (08:17)
[2023-08-04] MEDS ORDERED: risperiDONE 0.5 MG TABLET PO SCH (09:00)
[2023-08-04] MEDS ORDERED: hydrOXYzine HCl 25 MG TAB PO SCH (09:00)
[2023-08-04] MEDS ORDERED: ENOXAPARIN INJ 40 MG/0.4 ML SYR SQ SCH (09:00)
[2023-08-04] MEDS ORDERED: ASPIRIN 81 MG ECTAB PO SCH (09:00)
[2023-08-04] MEDS: PANTOprazole 40 MG in SYRINGE 0 ML IV SCH (12:05)
--- NOTE | 2023-08-04 12:31 | Discharge Summary ---
Date of Service August 04, 2023 Admission HPI Per Admitting Provider Danica is a 57-year-old F with past medical history of panic disorder, bipolar 2 disorder with suicidality, tobacco use, GERD, COPD, asthma who presents with right-sided chest pain and a new left bundle branch block. Her initial troponin in the ER 6.1, repeat troponin is 5.5.. Danica reports she has had 3 days of sudden onset sharp and achy pain in her right breast. Pain started 3 days ago and has been constant since then and has had no pain-free periods since that time. She does not feel like rest improves her pain. She has noted exertion and sudden movement causes the pain to be worse, pain is not worsened on palpation. She has a history of asthma and intermittent wheezing which she does feel has been worse lately, however she also has shortness of breath which she feels is of a different and more p ersistent quality than with prior asthma exacerbations. She tried using her albuterol twice with no improvement. No DM. No HTN. No prior cardiac history. No history of bleeding, is not on antiplatelets or blood thinner Endorses history of NH, mother and brother both passed of NH. Mom was 'older' and brother was 66 Mother with breast cancer Risperidone for seprresion 'aactually doing pretty good.' no si/hi. Follows with [facility]. 0.5ppd tobacco since age 11 Medical History: Reviewed Medications: Reviewed Surgical History: Reviewed Family history: Reviewed Allergies: Reviewed Social History: Endorses tobacco use, rare social alcohol Code Status: Full Admission Exam Per Admitting Provider General: A&Ox3. NAD. Cooperative. HEENT: Atraumatic, normocephalic. PERLAA. EoM intact. Vision.hearing intact Pulm: CTAB A&P. trace expiratory wheeze, -rales, -rhonchi. Symmetrical chest rise. No increased work of breathing. No respiratory distress. Cardiac: RRR, -mrg. Radial pulses intact and symmetrical. Abdominal: Nontender, nondistended, soft. BS present. Extremities: Warm, dry Principal Diagnosis Chest pain Discharge Exam General: Well-appearing, NAD Cardiovascular: RRR, +systolic murmur Pulmonary: CTAB, no W/R/R Abdomen: Soft, NT/ND, no guarding Extremities: Moving all extremities, no pedal edema Integumentary: No suspicious rash or lesion on exposed skin Neurologic: AAOx3, no focal deficits Psychiatric: Appropriate mood/affect Discharge Data Allergies Allergy/AdvReac Type Severity Reaction Status Date / Time ibuprofen Allergy Mild RASH Verified 07/12/23 10:00 shellfish derived Allergy Mild HIVES with Verified 07/12/23 10:00 crab hydrocodone Allergy Unknown itchy Uncoded 07/12/23 10:00 Consultations 08/03/23 13:32 ED Decision to Admit Stat Hospital Course (1) Chest pain: (2) GERD (gastroesophageal reflux disease): (3) COPD (chronic obstructive pulmonary disease): (4) Asthma: (5) Tobacco use: (6) Bipolar 2 disorder: Plan (1) Chest pain: 3 days of constant right-sided chest pain, worsened with movement not improved with rest. High-sensitivity troponin is normal x2. EKG is with left bundle branch block new from last EKG 5 years ago, no recent EKG for comparison Strongly suspect noncardiac as patient has had more than 72 hours of pain with normal troponin and is symptoms are exacerbated with movement but not sustained exertion, more suspicious for noncardiac Echo 08/03: No regional wall motion abnormalities, EF 50 to 55%, mild mitral regurgitation, mild tricuspid regurgitation Case was reviewed with cardiology 08/03, given presentation suspect that this is noncardiac pain however due to new bundle branch block patient should have an outpatient nuclear stress test - inpatient consultation and heparinization is not required. Reasonable to add aspirin 81 mg daily - Continue aspirin 81mg daily - Lidocaine patch used + PPI Recommend checking outpatient A1c and cholesterol panel for cardiac risk as sessment (2) GERD (gastroesophageal reflux disease): History of GERD with ?Bustos's not on PPI Hemoglobin stable, no signs of upper GI bleeding and BUN is normal Could have contributed to chest pain - Will need outpatient clarification of Bustos's diagnosis, recommend outpatient discussion of PPI (3) COPD (chronic obstructive pulmonary disease)/(4) Asthma: With report of intermittent wheezing on admission but no hypoxia No signs of superimposed pneumonia No wheezing 08/04 (5) Tobacco use: Patient reports cutting down from 2 packs/day to 1 pack/day, encouraged ongoing cessation efforts (6) Bipolar 2 disorder: Well-controlled, no recent SI per patient. Continue risperidone Message sent to [facility] [place] navigator to help coordinate finding and obtaining appt with a PCP and coordinate nuclear stress test Total Time Total Time Spent Total Time Spent (In Minutes): 35 Total Time Includes: Examination of the Patient, Discharge Planning and Medication Reconciliation Discharge Plan Discharge Items Patient Disposition: Home - Self-Care Reason For Visit: CHEST PAIN Discharge Diagnosis: Chest pain Activity: Resume your previous activity Non-emergency contact: Primary Care Provider Call non-emergency contact if: your symptoms worsen Follow-up/Referrals: PCP,NO [Primary Care Provider] - Diet: Heart Healthy Addtl Attending Provider Instructions: You are admitted with chest pain. Your EKG demonstrated an abnormality however this was not felt to be a chest pain episode related to your heart. You are recommended to have a cardiac stress test called nuclear stress test performed outpatient to assess your heart. Continue working on cutting down on tobacco use. We will help you find a PCP. You will need to meet with this new PCP after discharge and discuss testing to look for high cholesterol and diabetes. You were started on a daily aspirin. If you have new episode of chest pain, do not hesitate to return to the ER for evaluation. Pending Studies at Discharge: Yes Studies:: Recommended to have a cardiac nuclear stress test outpatient Stand-Alone Forms: My [employer], Work/School Release, Smoking Cessation Medications and DC Order Prescriptions: New aspirin 81 mg Tablet,Delayed Release (Dr/Ec) 81 mg PO DAILY Qty: 30 0RF Continued (DME) Medical marijuana aerosol 0 .Route .MEDSUPPLY Qty: 1 albuterol sulfate 90 mcg/actuation HFA aerosol inhaler 1 puff inhalation Q6H PRN (Reason: shortness of breath or wheezing) Qty: 18 1RF valacyclovir 500 mg tablet 500 mg PO BID Qty: 6 5RF trazodone 300 mg tablet 50 - 100 mg PO HS Rx Instructions: usually takes half tab hydralazine 25 mg tablet 25 mg PO BID Qty: 30 risperidone 1 mg tablet 0.5 mg PO QAM hydroxyzine HCl 50 mg tablet 50 mg PO DAILY Discharge Orders: Discharge Order (Routine); Ordered 08/04/23 Ordered By: Marisa Pepper Admission Data Admit Date/Time: 08/03/23 15:37 Attending Provider: Marisa Pepper Admit Provider: Christopher Yuen Primary Care Provider: PCP,NO Other Providers: Christopher Yuen Other Interventions: Discharge Summary Assessment (RN) Last Done: 08/04/23 12:58 Coding Level of Care Code 90559 INP/OBS DISCH >30 MIN Diagnoses Chest pain R07.9 Chest pain type: unspecified GERD (gastroesophageal reflux disease) K21.9 COPD (chronic obstructive pulmonary disease) J44.9 Asthma J45.909 Tobacco use Z72.0 Bipolar 2 disorder F31.81
== END 2023-08-04 13:45 | disposition home or self-care (01) ==
LOC: 2S 10:29 → ED 10:29 → SUATTDRO 15:37 → 2S 16:35